=== PATIENT | female | born 1990 ===

== ENCOUNTER 2019-06-08 10:58 | Outpatient (CLI) | payer OTHER | END 2019-06-08 11:00 | disposition home or self-care (01) | LOC: SONOGRAMA 10:58 | DX: N84.0 Polyp of corpus uteri (principal) ==

== ENCOUNTER 2021-07-04 11:25 | Emergency (ER) | payer OTHER ==
[~2021-07-04] VITALS: Ht 165.1 cm; Wt 61.2 kg
[2021-07-04] MEDS ORDERED: PRENA1 TRUE CO1 EACH PO (11:57)
== END 2021-07-04 15:37 | disposition home or self-care (01) ==
LOC: ER 11:25
DX: O26.892 Other specified pregnancy related conditions, second trimester (principal); R42 Dizziness and giddiness

== ENCOUNTER 2021-12-09 09:47 | Inpatient (IN) | payer OTHER ==
[~2021-12-09] VITALS: Ht 165.1 cm; Wt 2.7 kg
[~2021-12-09 09:47] MED LIST: PRENA1 TRUE CO1 EACH PO
[2021-12-10] MEDS ORDERED: ATABEX DHA 200200 MG (14:56)
[2021-12-12] MEDS ORDERED: SENOKOT8.6 M1 PO (07:07)
[2021-12-12] MEDS ORDERED: SIMETHICONE125 M1 PO (07:07)
[2021-12-12] MEDS ORDERED: PRENATE ADVANCE PO (07:07)
[2021-12-12] MEDS ORDERED: IBUPROFEN800 MG PO (07:07)
== END 2021-12-12 13:37 | disposition home or self-care (01) | DRG 788 ==
LOC: SURG-SUITE 09:47 → LDR 09:47 → SURG-SUITE 13:07
PROVIDERS: ADMIT Obstetrics & Gynecology; ATTEND Obstetrics & Gynecology
PROC: 4A1HXCZ Monitoring of Products of Conception, Cardiac Rate, External Approach (ICD-10-PCS; 2021-12-09)
PROC: 10D00Z1 Extraction of Products of Conception, Low, Open Approach (ICD-10-PCS; principal; 2021-12-09 11:30)
DX: O32.1XX0 Maternal care for breech presentation, not applicable or unspecified (principal); Z3A.37 37 weeks gestation of pregnancy; Z37.0 Single live birth; Z20.822 Contact with and (suspected) exposure to COVID-19